=== PATIENT | male | born 1990 ===

== ENCOUNTER 2018-07-19 21:35 | Emergency (ER) | payer OTHER ==
[2018-07-19 22:19] VITALS: TEMP 98.5
--- NOTE | 2018-07-19 23:11 | ED PDOC ---
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 Patient reports the pain worsens when sitting down, and was unrelieved by one Percocet that was given to him by a friend. Denies urinary symptoms, numbness, weakness, abdominal pain. He additionally thinks he hit his head, but denies any loss of consciousness, headache, vomiting, or nausea. PMD: none provided Past Medical History Reviewed: Historical Data, Nursing Documentation, Vital Signs Vital Signs: Last Vital Signs Temp 98.5 F 07/19/18 22:15 Pulse 58 L 07/19/18 22:15 Resp 16 07/19/18 22:15 BP 114/63 07/19/18 22:15 Pulse Ox 98 07/19/18 22:15 - Medical History Other PMH: hernia - Surgical History Surgical History: Hernia Repair (right side) - Family History Family History: States: Unknown Family Hx - Social History Current smoker - smoking cessation education provided: No Alcohol: None Drugs: Denies - Home Medications Home Medications: Ambulatory Orders Medication Instructions Recorded Naproxen 500 mg PO BID #20 tab 07/20/18 - Allergies Allergies/Adverse Reactions: Allergies Allergy/AdvReac Type Severity Reaction Status Date / Time No Known Allergies Allergy Verified 07/19/18 22:15 Review of Systems ROS Statement: Except As Marked, All Systems Reviewed And Found Negative Gastrointestinal: Negative for: Nausea, Vomiting, Abdominal Pain Genitourinary Male: Negative for: Dysuria, Frequency, Incontinence, Hematuria Musculoskeletal: Positive for: Back Pain (constant, lower) Neurological: Negative for: Headache, Other (loss of consciousness) Physical Exam - Reviewed Nursing Documentation Reviewed: Yes Vital Signs Reviewed: Yes - Physical Exam Appears: Positive for: No Acute Distress Head Exam: Positive for: ATRAUMATIC, NORMAL INSPECTION, NORMOCEPHALIC Skin: Positive for: Normal Color, Warm Eye Exam: Positive for: Normal appearance, EOMI, PERRL ENT: Positive for: Normal ENT Inspection Neck: Positive for: Normal, Painless ROM, Supple Cardiovascular/Chest: Positive for: Regular Rate, Rhythm Respiratory: Positive for: Normal Breath Sounds. Negative for: Respiratory Distress Gastrointestinal/Abdominal: Positive for: Normal Exam, Soft. Negative for: Tenderness Back: Positive for: Normal Inspection, Other (lower sacrum tailbone area tenderness; straight leg raise negative) Extremity: Positive for: Normal ROM Neurologic/Psych: Positive for: Alert, Oriented (x3) - ECG O2 Sat by Pulse Oximetry: 98 (RA) Pulse Ox Interpretation: Normal Medical Decision Making Medical Decision Making: Time: 2306 Impression: back pain, back injury, r/o fracture Initial Plan: --Toradol 30mg IM --Sacrum &/or coccyx XR Scribe Attestation: Documented by Julianne Galeano, acting as a scribe for Felipa Guzmán MD. Provider Scribe Attestation: All medical record entries made by the Scribe were at my direction and personally dictated by me. I have reviewed the chart and agree that the record accurately reflects my personal performance of the history, physical exam, medical decision making, and the department course for this patient. I have also personally directed, reviewed, and agree with the discharge instructions and disposition. Disposition - Clinical Impression Clinical Impression: Sacral pain - Patient ED Disposition Is Patient to be Admitted: No Doctor Will See Patient In The: Office Counseled Patient/Family Regarding: Studies Performed, Diagnosis, Need For Followup - Disposition Referrals: [facility] [Outside] Disposition: Routine/Home Disposition Time: 00:23 Condition: GOOD Additional Instructions: ROSA ELENA PASTRANA, thank you for letting us take care of you today. Your provider was Felipa Guzmán MD and you were treated for W/C FALL: BACK PAIN. The emergency medical care you received today was directed at your acute symptoms. If you were prescribed any medication, please fill it and take as directed. It may take several days for your symptoms to resolve. Return to the Emergency Department if your symptoms worsen, do not improve, or if you have any other problems. Please contact your doctor or call one of the physicians/clinics you have been referred to that are listed on the Patient Visit Information form that is included in your discharge packet. Bring any paperwork you were given at discharge with you along with any medications you are taking to your follow up visit. Our treatment cannot replace ongoing medical care by a primary care provider outside of the emergency department. Thank you for allowing the [facility] team to be part of your care today. If you had an X-Ray or CT scan: A Radiologist will review the ED reading if any change in treatment is needed we will contact you. If you had a blood, urine, or wound culture: It will take several days for the results, if any change in treatment is needed we will contact you. If you had an STI test: It will take 48 hours for the results. Please call after 1 week if you have not heard back. Prescriptions: Naproxen 500 mg PO BID #20 tab Instructions: Coccyx Injury
[2018-07-20 00:55] VITALS: BP 111/66; PULSE 61; RESP 19; O2SAT 100
--- NOTE | 2018-07-20 14:42 | RAD ---
Date of service: 07/19/2018 PROCEDURE: Radiographs of the Sacrum and Coccyx HISTORY: Tailbone pain injury COMPARISON: None available. TECHNIQUE: Frontal and lateral views of the sacrum and coccyx FINDINGS: BONES: No definitive evidence of acute displaced fracture of the sacrum so far as can be seen however note that evaluation of the sacrum and coccyx limited due to overlying bowel related artifact. There does appear to be spina bifida occulta involving the lower sacral and coccygeal segments. SACROILIAC JOINTS: SI joints intact. OTHER FINDINGS: None. IMPRESSION: Slightly limited study demonstrating no definitive evidence of acute displaced fracture nor dislocation. If symptoms persist consider followup CT scan the sacrum if necessary. Apparent spina bifida occulta the the mid to lower sacrum and upper coccygeal segments. The
== END 2018-07-20 01:00 | disposition home or self-care (01) ==
LOC: H.ER 21:35
DX: S39.92XA Unspecified injury of lower back, initial encounter (principal); W11.XXXA Fall on and from ladder, initial encounter; Y99.0 Civilian activity done for income or pay
CPT/HCPCS: 72220; 96372; 99283; J1885